=== PATIENT | male | born 1965 | race Hispanic/Latino ===

== ENCOUNTER 2024-11-17 14:44 | Emergency (ER) | payer OTHER ==
[~2024-11-17] VITALS: Ht 177.8 cm; Wt 117.9 kg
[2024-11-17 14:46] VITALS: TEMP 98
[2024-11-17] MEDS ORDERED: ketOROlac 15MG/ML VIAL (15MG/ML) IM ONE (15:00)
[2024-11-17] MEDS ORDERED: ORPH100 PO (15:12)
[2024-11-17] MEDS ORDERED: MELO-108 PO (15:12)
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
[2024-11-17] MEDS: HYDROcodone/APAP 5/325 1 TAB TABLET PO ONE (16:07)
[2024-11-17] MEDS: ketOROlac 15MG/ML VIAL (15MG/ML) IM ONE (16:31)
[2024-11-17 16:46] VITALS: BP 166/94; PULSE 83; RESP 19; O2SAT 98
== END 2024-11-17 17:03 | disposition home or self-care (01) ==
LOC: EDH 14:44
DX: S13.4XXA Sprain of ligaments of cervical spine, initial encounter (principal); E11.9 Type 2 diabetes mellitus without complications; I10 Essential (primary) hypertension; V89.2XXA Person injured in unspecified motor-vehicle accident, traffic, initial encounter; Y93.89 Activity, other specified; Y92.89 Other specified places as the place of occurrence of the external cause; Y99.8 Other external cause status
CPT/HCPCS: 99283; 96372; J1885